=== PATIENT | male | born 1950 | race Caucasian/White ===

== ENCOUNTER 2021-03-14 07:28 | Outpatient (CLI) | payer MEDICARE, BC ==
[2021-03-14] MEDS ORDERED: Iopamidol-370 76% 500 ML 1 ML ONE (09:35)
== END 2021-03-14 07:29 | disposition home or self-care (01) ==
LOC: BICCT 07:28
PROVIDERS: ATTEND Internal Medicine Gastroenterology
DX: K86.2 Cyst of pancreas (principal); N28.1 Cyst of kidney, acquired; K21.9 Gastro-esophageal reflux disease without esophagitis; D56.9 Thalassemia, unspecified; N28.89 Other specified disorders of kidney and ureter; Z86.010 Personal history of colon polyps
CPT/HCPCS: 74177; 82565; Q9967

== ENCOUNTER 2022-10-17 07:13 | Outpatient (CLI) | payer MEDICARE, BC ==
[2022-10-17] MEDS ORDERED: Iopamidol 370 76% 100 ML VIAL ONE (11:06)
== END 2022-10-17 07:14 | disposition home or self-care (01) ==
LOC: CT 07:13
PROVIDERS: ATTEND Internal Medicine Gastroenterology
DX: N28.1 Cyst of kidney, acquired (principal); K86.2 Cyst of pancreas; R10.13 Epigastric pain; N28.89 Other specified disorders of kidney and ureter
CPT/HCPCS: 74170; 82565; Q9967